=== PATIENT | female | born 1935 | race Caucasian/White ===

== ENCOUNTER 2021-09-16 13:38 | Outpatient (CLI) | payer MEDICARE ==
[2021-09-16] MEDS ORDERED: IOPAMIDOL-300 100 ML VIAL ONE (13:50)
[2021-09-16] MEDS ORDERED: IOVERSOL 320 50 ML VIAL ONE (13:50)
[2021-09-16] MEDS ORDERED: IOPAMIDOL-300 100 ML VIAL IVP ONE (16:40)
[2021-09-16] MEDS ORDERED: IOVERSOL 320 50 ML VIAL PO ONE (16:40)
--- NOTE | 2021-09-16 17:23 | CT Report ---
PROCEDURE: Abdomen/Pelvis W INDICATIONS: DIARRHEA CONTRAST: IV CONTRAST: Isovue 300 ml: 100 PO CONTRAST: *NO PO CONTRAST TECHNIQUE: After the administration of oral and intravenous contrast, 5 mm thick sections acquired from the diap hragms to the symphysis. 5 mm thick coronal and sagittal reformats were acquired. For radiation dos e reduction, the following was used: automated exposure control, adjustment of mA and/or kV accordin g to patient size. COMPARISON: None. FINDINGS: Inferior chest: Bibasilar atelectasis. Cardiomegaly without pericardial effusion. Gallbladder: The gallbladder is distended with a smooth thin wall. Biliary tree: No intra-or extrahepatic biliary ductal dilatation. Liver: Normal enhancement and contour. Measures up to 17.8 cm in length. 4.5 mm hypoattenuating lesio n in the anterior right hepatic lobe, most consistent with a cyst. Spleen: Normal enhancement, size and morphology is seen. Pancreas: No contour deforming mass or inflammatory change. Adrenals: Normal size without masses. Kidneys/ureters: Normal size and morphology. No solid masses or hydronephrosis. 9.9 mm hypoattenuating lesion in the right upper pole, most consistent with a cyst. Vasculature: No evidence of aneurysm or other significant vascular pathology. Lymphatic system: No pathologic enlargement by size criteria. GI/mesentery: No evidence of intestinal obstruction. Sigmoid diverticulosis. The appendix is not well delineated. Peritoneum/Retroperitoneum: No free intraperitoneal gas or large collection. Urinary bladder: The urinary bladder is distended with a smooth thin wall. Pelvic organs: Uterine calcifications, likely reflecting myomatous change. Bones/soft tissues: No significant abnormality. Multifocal degenerative change. A fat-containing righ t fascial defect is seen measuring 5 mm, which may reflect a femoral hernia. IMPRESSION: 1.Cardiomegaly without pericardial effusion. 2.Myomatous change of the uterus. Reviewed by: Blayne Issa MD on 09/16/2021 5:22 PM PDT Approved by: Blayne Issa MD on 09/16/2021 5:22 PM PDT Station ID: [id number]
== END 2021-09-16 13:39 | disposition home or self-care (01) ==
LOC: LAB 13:38
PROVIDERS: ATTEND Internal Medicine
DX: Z79.899 Other long term (current) drug therapy (principal); R19.7 Diarrhea, unspecified; I51.7 Cardiomegaly; D25.9 Leiomyoma of uterus, unspecified
CPT/HCPCS: 36415; 74177; 82565; Q9967